=== PATIENT | female | born 1970 | race Caucasian/White ===

== ENCOUNTER 2021-12-26 10:24 | Outpatient (CLI) | payer BC, SELFPAY ==
--- NOTE | ~2021-12-26 | XR_ITS ---
EXAM: [id number] DATE: 12/26/2021 10:59 HISTORY: Pleurodynia . COMPARISON: X-ray and CTA chest 04/17/2018. FINDINGS: Diffuse reticulonodular pattern. Right upper lung air cysts versus bronchiectasis. Pulmonar y opacities may reflect bronchiolitis. Normal mineralization. No fracture or dislocation. No lytic or blastic lesion. Joint spaces are maintained. No erosion or periosteal change. Soft tissues within no rmal limits. IMPRESSION: No acute osseous finding in the left ribs. No pleural effusion. Reviewed, dictated and finalized at location K.
== END 2021-12-26 10:25 ==
PROVIDERS: PCP Family Medicine; Visit Provider Physician Assistant
DX: R07.81 Pleurodynia (principal)
CPT/HCPCS: 71101